=== PATIENT | female | born 1985 ===

== ENCOUNTER 2017-01-24 14:47 | Emergency (ER) | payer OTHER ==
[2017-01-24 15:12] VITALS: BP 106/76; PULSE 70; RESP 20; TEMP 98.4; O2SAT 98
--- NOTE | 2017-01-24 16:35 | ED PDOC ---
HPI: Female Pain Time Seen by Provider: 01/24/17 15:51 Chief Complaint (Nursing): Female Genitourinary Chief Complaint (Provider): tampon retention History Per: Patient History/Exam Limitations: no limitations Onset/Duration Of Symptoms: Days Current Symptoms Are (Timing): Still Present Severity: Mild Quality Of Discomfort: denies: "Pain" Associated Symptoms: denies: Fever, Urinary Symptoms Additional History Per: Patient Additional Complaint(s): The pt is a 31yo female, presents to the ED for evaluation for possible tampon retention. Pt states she has had her menstrual period for the past 5 days and had placed a tampon in last night and while attempting to remove it today, could not find it causing her concerns. Pt reports no bleeding and denies any foul smell, discharge or urinary complaints. At present, she offers no additional medical complaints. PMD; None provided Abnormal Vaginal Bleeding: No Past Medical History Reviewed: Historical Data, Nursing Documentation, Vital Signs Vital Signs: Last Vital Signs Temp 98.4 F 01/24/17 15:09 Pulse 70 01/24/17 15:09 Resp 20 01/24/17 15:09 BP 106/76 01/24/17 15:09 Pulse Ox 98 01/24/17 15:09 - Medical History PMH: No Chronic Diseases - Surgical History Surgical History: No Surg Hx - Family History Family History: States: Unknown Family Hx Review of Systems ROS Statement: Except As Marked, All Systems Reviewed And Found Negative Genitourinary Female: Positive for: Other (tampon retention). Negative for: Vaginal Discharge, Vaginal Bleeding Physical Exam - Reviewed Nursing Documentation Reviewed: Yes Vital Signs Reviewed: Yes - Physical Exam Appears: Positive for: Well, Non-toxic, No Acute Distress Head Exam: Positive for: ATRAUMATIC, NORMAL INSPECTION, NORMOCEPHALIC Skin: Positive for: Normal Color Eye Exam: Positive for: Normal appearance Cardiovascular/Chest: Positive for: Regular Rate, Rhythm Respiratory: Positive for: Normal Breath Sounds. Negative for: Respiratory Distress Gastrointestinal/Abdominal: Positive for: Normal Exam, Soft. Negative for: Tenderness Pelvic Exam: Positive for: Other (No tampon noted. No foul smell noted.). Negative for: Blood, Discharge Neurologic/Psych: Positive for: Alert, Oriented - ECG O2 Sat by Pulse Oximetry: 98 Medical Decision Making Medical Decision Making: Time: 1600 Impression: Possible retention of tampon Plan: -- Pelvic exam conducted with Nurse Pina as copy messenger. 1628 No discharge, bleeding or foul smell noted. No tampon noted. Pt stable for d/c home. Scribe Attestation: Documented by Cathy Carpenter acting as a scribe for ZEFERINO Farmer Provider Scribe Attestation: All medical record entries made by the Scribe were at my direction and personally dictated by me. I have reviewed the chart and agree that the record accurately reflects my personal performance of the history, physical exam, medical decision making, and the department course for this patient. I have also personally directed, reviewed, and agree with the discharge instructions and disposition. Disposition - Clinical Impression Clinical Impression: Gynecologic exam normal - Patient ED Disposition Is Patient to be Admitted: No - Disposition Disposition: Routine/Home Disposition Time: 16:28 Condition: STABLE Additional Instructions: return for foul smell or any new concerns the tampon was not in your vagina
--- NOTE | 2017-01-24 16:38 | ED PDOC ---
HPI: Female Pain Time Seen by Provider: 01/24/17 15:51 Chief Complaint (Nursing): Female Genitourinary Past Medical History Vital Signs: Last Vital Signs Temp 98.4 F 01/24/17 15:09 Pulse 70 01/24/17 15:09 Resp 20 01/24/17 15:09 BP 106/76 01/24/17 15:09 Pulse Ox 98 01/24/17 15:09 - ECG O2 Sat by Pulse Oximetry: 98 Disposition - Clinical Impression Clinical Impression: Gynecologic exam normal - Patient ED Disposition Is Patient to be Admitted: No Counseled Patient/Family Regarding: Studies Performed - Disposition Disposition Time: 16:23 Condition: STABLE Additional Instructions: return for foul smell or any new concerns the tampon was not in your vagina
== END 2017-01-24 16:26 | disposition home or self-care (01) ==
LOC: H.ER 14:47
DX: Z01.419 Encounter for gynecological examination (general) (routine) without abnormal findings (principal)